=== PATIENT | male | born 1965 | race Two or more races ===

== ENCOUNTER 2018-06-26 19:20 | Inpatient (IN) | END 2018-06-29 20:16 | DRG 194 | DX: I11.0 Hypertensive heart disease with heart failure (principal); N17.0 Acute kidney failure with tubular necrosis; I21.A1 Myocardial infarction type 2; I50.23 Acute on chronic systolic (congestive) heart failure; E11.621 Type 2 diabetes mellitus with foot ulcer; E11.51 Type 2 diabetes mellitus with diabetic peripheral angiopathy without gangrene; E78.5 Hyperlipidemia, unspecified; E11.40 Type 2 diabetes mellitus with diabetic neuropathy, unspecified; D63.8 Anemia in other chronic diseases classified elsewhere; E11.319 Type 2 diabetes mellitus with unspecified diabetic retinopathy without macular edema; I25.10 Atherosclerotic heart disease of native coronary artery without angina pectoris; Z79.4 Long term (current) use of insulin; I42.9 Cardiomyopathy, unspecified; L97.509 Non-pressure chronic ulcer of other part of unspecified foot with unspecified severity; Z86.14 Personal history of Methicillin resistant Staphylococcus aureus infection; Z89.422 Acquired absence of other left toe(s) ==